=== PATIENT | female | born 1930 | race Native Hawaiian/Other Pacific Islander ===

== ENCOUNTER 2016-10-28 09:37 | Outpatient (CLI) | payer OTHER ==
[~2016-10-28 09:37] MED LIST: BALSALAZIDE750 MG PO; CEPH500C20 PO; DELZICOL400 MG PO; DICY20TA34 PO; DOCU100C10 PO; MAGNSUS68 PO; QUESTRAN4 G1 OR; TRAMADOL HCL XX; ULTRAM ER100 MG PO; VERIPRED 220 MG/5 ML PO; VITAMIN B-125000 MCG SL; WELCHOL625 MG PO
== END 2016-10-28 19:15 | disposition home or self-care (01) ==
LOC: RAD 09:37
DX: M85.89 Other specified disorders of bone density and structure, multiple sites (principal)

== ENCOUNTER 2016-11-07 07:43 | Outpatient (CLI) | payer OTHER | END 2016-11-07 19:19 | disposition home or self-care (01) | LOC: LABW 07:43 | PROVIDERS: Internal Medicine | DX: I10 Essential (primary) hypertension (principal) | CPT/HCPCS: 36415; 80061 ==

== ENCOUNTER 2017-04-11 12:42 | Outpatient (CLI) | payer OTHER | END 2017-04-11 19:03 | disposition home or self-care (01) | LOC: LAB 12:42 | DX: N39.0 Urinary tract infection, site not specified (principal) | CPT/HCPCS: 87077; 87086; 87088; 87186 ==

== ENCOUNTER 2017-05-16 15:08 | Outpatient (CLI) | payer OTHER ==
[2017-05-16 15:47] LABS: PLATELET COUNT 184 K/uL (152-353)
== END 2017-05-16 19:14 | disposition home or self-care (01) ==
LOC: LAB 15:08
PROVIDERS: Internal Medicine
DX: I10 Essential (primary) hypertension (principal); D64.89 Other specified anemias; R82.99 Other abnormal findings in urine
CPT/HCPCS: 80053; 80061; 81000; 84439; 84443; 85027; 87086; 87088

== ENCOUNTER 2017-10-24 10:30 | Outpatient (CLI) | payer OTHER ==
[~2017-10-24 10:30] MED LIST changes: +FIBER LAXATIV0.52 GM PO; +LIALDA1.2 GM PO
== END 2017-10-24 18:18 | disposition home or self-care (01) ==
LOC: NM 10:30
DX: K80.20 Calculus of gallbladder without cholecystitis without obstruction (principal)
CPT/HCPCS: A9537

== ENCOUNTER 2017-11-28 06:55 | Emergency (ER) | payer OTHER ==
[~2017-11-28] VITALS: Ht 160 cm; Wt 59.9 kg
[2017-11-28 07:03] VITALS: TEMP 97.9
[2017-11-28 07:35] LABS: POTASSIUM 4.3 mmol/L (3.6-5.2)
[2017-11-28 07:48] LABS: PLATELET COUNT 185 K/uL (152-353)
[2017-11-28 08:30] VITALS: BP 143/62
== END 2017-11-28 08:35 | disposition home or self-care (01) ==
LOC: ED 06:55
DX: K81.1 Chronic cholecystitis (principal)
CPT/HCPCS: 36415; 80053; 85027; 96374; 96375; 99284; J2175; J2405

== ENCOUNTER 2018-01-29 08:14 | Outpatient (CLI) | payer OTHER ==
[2018-01-29 08:58] LABS: PLATELET COUNT 221 K/uL (152-353)
[2018-01-29 09:45] LABS: POTASSIUM 3.8 mmol/L (3.6-5.2)
== END 2018-01-29 19:47 | disposition home or self-care (01) ==
LOC: LABW 08:14
PROVIDERS: Internal Medicine
DX: I25.10 Atherosclerotic heart disease of native coronary artery without angina pectoris (principal); E55.9 Vitamin D deficiency, unspecified; I10 Essential (primary) hypertension; Z79.899 Other long term (current) drug therapy; Z51.81 Encounter for therapeutic drug level monitoring
CPT/HCPCS: 36415; 80053; 80061; 81000; 82306; 82607; 84439; 84443; 85027

== ENCOUNTER 2018-06-24 08:06 | Inpatient (IN) | payer OTHER ==
[2018-06-24] VITALS (19 sets, daily range): BP systolic 123–170; BP diastolic 58–80; TEMP 97.7–98.3; Ht 160 cm; Wt 54.7 kg
[~2018-06-24] VITALS: Ht 160 cm; Wt 54.7 kg
[2018-06-24] MEDS ORDERED: VITAMIN D32000 UNI3 PO (08:26)
[2018-06-24] MEDS ORDERED: METHYL B-121000 MCG PO (08:27)
[2018-06-24] MEDS ORDERED: MULTIVITAMI2 PO (08:29)
[2018-06-24 08:42] LABS: PLATELET COUNT 182 K/uL (152-353)
[2018-06-24 08:52] LABS: POTASSIUM 3.7 mmol/L (3.6-5.2)
[2018-06-24 09:55] LABS: PARTIAL THROMBOPLASTIN TIME 25.1 SECONDS (24.5-33.6)
[2018-06-25] VITALS (21 sets, daily range): BP systolic 98–151; BP diastolic 52–83; TEMP 98.1–98.7
[2018-06-25 06:34] LABS: PLATELET COUNT 173 K/uL (152-353)
[2018-06-25 06:42] LABS: POTASSIUM 3.9 mmol/L (3.6-5.2); SODIUM 139 mmol/L (136-145)
[2018-06-26] VITALS (24 sets, daily range): BP systolic 88–137; BP diastolic 50–76; TEMP 97.8–98.3
[2018-06-26 05:57] LABS: PLATELET COUNT 176 K/uL (152-353)
[2018-06-26 06:19] LABS: POTASSIUM 3.9 mmol/L (3.6-5.2)
[2018-06-27] VITALS (13 sets, daily range): BP systolic 100–133; BP diastolic 48–70; TEMP 97.7–98.1
[2018-06-27 06:17] LABS: PLATELET COUNT 172 K/uL (152-353)
[2018-06-27 06:35] LABS: POTASSIUM 3.9 mmol/L (3.6-5.2)
[2018-06-28 04:00] VITALS: BP 92/51; TEMP 98.3
[2018-06-28 08:00] VITALS: BP 109/49; TEMP 97.5
[2018-06-28 08:00] LABS: PLATELET COUNT 175 K/uL (152-353)
[2018-06-28 08:20] LABS: POTASSIUM 3.8 mmol/L (3.6-5.2)
== END 2018-06-28 10:45 | disposition home or self-care (01) | DRG 65 ==
LOC: ED 08:06 → ICU 09:50 → MED/SURG 06-27 11:38
PROVIDERS: Family Medicine; Internal Medicine; ADMIT Internal Medicine
DX: I63.411 Cerebral infarction due to embolism of right middle cerebral artery (principal); N39.0 Urinary tract infection, site not specified; I69.391 Dysphagia following cerebral infarction; R13.12 Dysphagia, oropharyngeal phase; I25.10 Atherosclerotic heart disease of native coronary artery without angina pectoris; I12.9 Hypertensive chronic kidney disease with stage 1 through stage 4 chronic kidney disease, or unspecified chronic kidney disease; N18.3 Chronic kidney disease, stage 3 (moderate); B96.20 Unspecified Escherichia coli [E. coli] as the cause of diseases classified elsewhere; F03.90 Unspecified dementia, unspecified severity, without behavioral disturbance, psychotic disturbance, mood disturbance, and anxiety
CPT/HCPCS: 36415; 80053; 81000; 82550; 83735; 84439; 84443; 84484; 85027; 85379; 85610; 85730; 87077; 87086; 87088; 87186; 93005; 93306; 99285; J1650

== ENCOUNTER 2018-07-05 08:58 | Emergency (ER) | payer OTHER ==
[~2018-07-05] VITALS: Ht 160 cm; Wt 54.4 kg
[~2018-07-05 08:58] MED LIST changes: +METHYL B-121000 MCG PO; +MULTIVITAMI2 PO; +VITAMIN D32000 UNI3 PO
[2018-07-05 09:50] LABS: PLATELET COUNT 194 K/uL (152-353)
[2018-07-05 09:56] LABS: SODIUM 139 mmol/L (136-145)
[2018-07-05 10:13] LABS: PARTIAL THROMBOPLASTIN TIME 26.1 SECONDS (24.5-33.6)
[2018-07-05 12:23] VITALS: BP 117/54; TEMP 98
== END 2018-07-05 12:23 | disposition home or self-care (01) ==
LOC: ED 08:58
DX: G45.8 Other transient cerebral ischemic attacks and related syndromes (principal); J44.9 Chronic obstructive pulmonary disease, unspecified; Z79.899 Other long term (current) drug therapy; Z51.81 Encounter for therapeutic drug level monitoring
CPT/HCPCS: 80053; 81000; 82550; 84484; 85027; 85610; 85730; 93005; 99283

== ENCOUNTER 2018-11-29 08:06 | Outpatient (CLI) | payer OTHER ==
[2018-11-29 09:10] LABS: PLATELET COUNT 182 K/uL (152-353)
[2018-11-29 09:32] LABS: POTASSIUM 3.8 mmol/L (3.6-5.2)
== END 2018-11-29 21:39 | disposition home or self-care (01) ==
LOC: LABW 08:06
PROVIDERS: Internal Medicine
DX: I25.10 Atherosclerotic heart disease of native coronary artery without angina pectoris (principal); K59.00 Constipation, unspecified; I48.0 Paroxysmal atrial fibrillation; Z79.899 Other long term (current) drug therapy
CPT/HCPCS: 36415; 80053; 81000; 84439; 84443; 85027

== ENCOUNTER 2018-12-25 08:02 | Outpatient (CLI) | payer OTHER ==
[2018-12-25 08:20] LABS: PLATELET COUNT 192 K/uL (152-353)
[2018-12-25 08:44] LABS: POTASSIUM 4.2 mmol/L (3.6-5.2)
== END 2018-12-25 19:29 | disposition home or self-care (01) ==
LOC: LABW 08:02
PROVIDERS: Internal Medicine
DX: R53.1 Weakness (principal)
CPT/HCPCS: 36415; 80053; 81000; 84443; 85027

== ENCOUNTER 2019-03-16 14:42 | Emergency (ER) | payer OTHER ==
[~2019-03-16] VITALS: Ht 160 cm; Wt 54.4 kg
[2019-03-16 16:59] VITALS: BP 135/88; TEMP 97.9
== END 2019-03-16 17:00 | disposition home or self-care (01) ==
LOC: ED 14:42
DX: S09.8XXA Other specified injuries of head, initial encounter (principal); S50.312A Abrasion of left elbow, initial encounter; W01.198A Fall on same level from slipping, tripping and stumbling with subsequent striking against other object, initial encounter; Y92.091 Bathroom in other non-institutional residence as the place of occurrence of the external cause
CPT/HCPCS: 90471; 90715; 99282; 99283

== ENCOUNTER 2019-03-18 07:57 | Outpatient (CLI) | payer OTHER ==
[2019-03-18 08:26] LABS: PLATELET COUNT 150 K/uL (152-353)
[2019-03-18 08:42] LABS: POTASSIUM 3.8 mmol/L (3.6-5.2)
== END 2019-03-19 05:45 | disposition home or self-care (01) ==
LOC: LABW 07:57
PROVIDERS: Internal Medicine
DX: R63.0 Anorexia (principal); Z79.899 Other long term (current) drug therapy
CPT/HCPCS: 36415; 80053; 81000; 84439; 84443; 85027

== ENCOUNTER 2019-03-19 08:28 | Outpatient (CLI) | payer OTHER | END 2019-03-19 23:40 | disposition home or self-care (01) | LOC: LABW 08:28 | DX: D64.89 Other specified anemias (principal); E53.8 Deficiency of other specified B group vitamins; D64.9 Anemia, unspecified | CPT/HCPCS: 36415; 82607; 82728; 82747; 83540 ==

== ENCOUNTER 2019-04-27 05:45 | Outpatient (CLI) | payer OTHER ==
[2019-04-27] MEDS ORDERED: ELIQUIS STARTER5 MG PO (06:28)
[2019-04-27] MEDS ORDERED: CYPROHEPTADINE H4 MG PO (06:29)
[2019-04-27] MEDS ORDERED: LIALDA1.2 GM PO (19:10)
== END 2019-04-27 05:58 | disposition short-term general hospital (02) ==
LOC: AMB 05:45
DX: R55 Syncope and collapse (principal); R53.1 Weakness
CPT/HCPCS: A0425; A0427

== ENCOUNTER 2019-04-27 05:56 | Observation (INO) | payer OTHER ==
[~2019-04-27] VITALS: Ht 157.5 cm; Wt 50.0 kg
[2019-04-27] VITALS (15 sets, daily range): BP systolic 97–126; BP diastolic 49–73; TEMP 97.2–99; Ht 157.5 cm; Wt 50.0 kg
[2019-04-27] MEDS ORDERED: ELIQUIS STARTER5 MG PO (06:28)
[2019-04-27] MEDS ORDERED: CYPROHEPTADINE H4 MG PO (06:29)
[2019-04-27 06:41] LABS: PLATELET COUNT 198 K/uL (152-353)
[2019-04-27 06:49] LABS: POTASSIUM 3.9 mmol/L (3.6-5.2); SODIUM 138 mmol/L (136-145)
[2019-04-27] MEDS ORDERED: LIALDA1.2 GM PO (19:10)
[2019-04-28 04:00] VITALS: BP 107/65; TEMP 98.3
[2019-04-28 05:36] LABS: PLATELET COUNT 143 K/uL (152-353)
[2019-04-28 05:50] LABS: POTASSIUM 3.4 mmol/L (3.6-5.2)
[2019-04-28 08:00] VITALS: BP 138/74; TEMP 97.9
[2019-04-28 12:00] VITALS: BP 129/57; TEMP 97.9
[2019-04-28 14:44] LABS: PARTIAL THROMBOPLASTIN TIME 39.3 SECONDS (24.5-33.6)
[2019-04-28 16:00] VITALS: BP 140/117; TEMP 97.4
[2019-04-28 20:00] VITALS: BP 144/69; TEMP 98.6
[2019-04-29] VITALS: BP 135/63; TEMP 98.4
[2019-04-29 04:00] VITALS: BP 132/50; TEMP 98.8
[2019-04-29 05:05] LABS: PLATELET COUNT 157 K/uL (152-353)
[2019-04-29 05:18] LABS: POTASSIUM 3.5 mmol/L (3.6-5.2)
[2019-04-29 08:00] VITALS: BP 102/58; TEMP 98.6
== END 2019-04-29 10:30 | disposition home or self-care (01) ==
LOC: ED 05:56 → MED/SURG 09:07
PROVIDERS: Family Medicine; Internal Medicine; ADMIT Emergency Medicine
DX: D50.8 Other iron deficiency anemias (principal); F03.90 Unspecified dementia, unspecified severity, without behavioral disturbance, psychotic disturbance, mood disturbance, and anxiety; I69.354 Hemiplegia and hemiparesis following cerebral infarction affecting left non-dominant side; I48.0 Paroxysmal atrial fibrillation; Z79.01 Long term (current) use of anticoagulants; E46 Unspecified protein-calorie malnutrition; E86.0 Dehydration; K51.80 Other ulcerative colitis without complications; E87.6 Hypokalemia; R53.1 Weakness; I95.89 Other hypotension; R55 Syncope and collapse
CPT/HCPCS: 36415; 80053; 81000; 82550; 82607; 84134; 84207; 84484; 85027; 85610; 85730; 93005; 96360; 99220; 99284; G0378; J3490

== ENCOUNTER 2019-05-01 12:26 | Outpatient (CLI) | payer OTHER ==
[~2019-05-01 12:26] MED LIST changes: +CYPROHEPTADINE H4 MG PO; +ELIQUIS STARTER5 MG PO
== END 2019-05-01 20:14 | disposition home or self-care (01) ==
LOC: LAB 12:26
DX: R19.7 Diarrhea, unspecified (principal)
CPT/HCPCS: 82272; 83630; 87324; 87328; 87329; 87449; 87507

== ENCOUNTER 2019-05-06 07:57 | Outpatient (CLI) | payer OTHER ==
[2019-05-06 08:37] LABS: PLATELET COUNT 275 K/uL (152-353)
[2019-05-06 09:06] LABS: POTASSIUM 3.3 mmol/L (3.6-5.2)
== END 2019-05-06 20:21 | disposition home or self-care (01) ==
LOC: LABW 07:57
PROVIDERS: Internal Medicine Medical Oncology
DX: D64.89 Other specified anemias (principal); I48.0 Paroxysmal atrial fibrillation
CPT/HCPCS: 36415; 80053; 82525; 82607; 82728; 82746; 83010; 83540; 83550; 83615; 83883; 84165; 85027; 85044; 86880

== ENCOUNTER 2019-10-31 11:00 | Outpatient (CLI) | payer OTHER ==
[2019-10-31 11:34] LABS: PLATELET COUNT 195 K/uL (152-353)
[2019-10-31 11:44] LABS: POTASSIUM 4.1 mmol/L (3.6-5.2)
== END 2019-10-31 22:45 | disposition home or self-care (01) ==
LOC: LABW 11:00
PROVIDERS: Family Medicine
DX: M54.5 Low back pain (principal); N39.0 Urinary tract infection, site not specified; R31.9 Hematuria, unspecified; R53.83 Other fatigue; E78.49 Other hyperlipidemia
CPT/HCPCS: 36415; 80053; 80061; 82043; 82570; 84100; 85027; 87086; 87088; Q9963

== ENCOUNTER 2019-11-04 09:41 | Outpatient (CLI) | payer OTHER | END 2019-11-04 23:05 | disposition home or self-care (01) | LOC: MRI 09:41 | DX: R93.7 Abnormal findings on diagnostic imaging of other parts of musculoskeletal system (principal) ==

== ENCOUNTER 2019-12-16 10:25 | Outpatient (CLI) | payer OTHER ==
[2019-12-16 11:23] LABS: PLATELET COUNT 198 K/uL (152-353)
[2019-12-16 11:47] LABS: POTASSIUM 3.4 mmol/L (3.6-5.2)
== END 2019-12-16 19:38 | disposition home or self-care (01) ==
LOC: LAB 10:25
PROVIDERS: Internal Medicine Medical Oncology
DX: D46.Z Other myelodysplastic syndromes (principal)
CPT/HCPCS: 80053; 82607; 82728; 82746; 83540; 83550; 85027

== ENCOUNTER 2020-03-23 11:25 | Outpatient (CLI) | payer OTHER ==
[2020-03-23 11:50] LABS: PLATELET COUNT 189 K/uL (152-353)
[2020-03-23 12:42] LABS: POTASSIUM 3.9 mmol/L (3.6-5.2)
== END 2020-03-23 22:38 | disposition home or self-care (01) ==
LOC: LAB 11:25
PROVIDERS: Internal Medicine Medical Oncology
DX: D46.Z Other myelodysplastic syndromes (principal)
CPT/HCPCS: 80053; 82607; 82728; 83540; 83550; 85027

== ENCOUNTER 2020-06-15 12:22 | Outpatient (CLI) | payer OTHER ==
[2020-06-15 12:53] LABS: PLATELET COUNT 199 K/uL (152-353)
== END 2020-06-15 20:32 | disposition home or self-care (01) ==
LOC: LAB 12:22
PROVIDERS: Nurse Practitioner Adult Health
DX: D46.Z Other myelodysplastic syndromes (principal)
CPT/HCPCS: 85027

== ENCOUNTER 2020-08-18 11:26 | Outpatient (CLI) | payer OTHER ==
[2020-08-18 11:51] LABS: PLATELET COUNT 193 K/uL (152-353)
[2020-08-18 12:11] LABS: POTASSIUM 3.8 mmol/L (3.6-5.2)
== END 2020-08-18 22:57 | disposition home or self-care (01) ==
LOC: LAB 11:26
PROVIDERS: ATTEND Nurse Practitioner Adult Health
DX: D46.Z Other myelodysplastic syndromes (principal)
CPT/HCPCS: 80053; 82607; 82728; 83540; 83550; 85027

== ENCOUNTER 2020-11-04 08:01 | Observation (INO) | payer OTHER ==
[2020-11-04] VITALS (9 sets, daily range): BP systolic 111–143; BP diastolic 50–62; TEMP 98–99.2; Ht 160 cm; Wt 64.6 kg
[~2020-11-04] VITALS: Ht 160 cm; Wt 64.6 kg
[2020-11-04 08:50] LABS: POTASSIUM 4.2 mmol/L (3.6-5.2)
[2020-11-04 08:56] LABS: PLATELET COUNT 300 K/uL (152-353)
[2020-11-04] MEDS ORDERED: ELIQUIS5 MG PO (11:52)
[2020-11-04] MEDS ORDERED: PREDNISONE5 MG PO (11:58)
[2020-11-04] MEDS ORDERED: MESALAMINE DR1.2 GM PO (11:59)
[2020-11-04] MEDS ORDERED: VITAMIN D32000 UNI1 PO (12:07)
[2020-11-04] MEDS ORDERED: VITAMIN B-121000 MC2 PO (12:12)
--- NOTE | 2020-11-04 19:52 | NUR ---
1ST UNIT OF PRBC'S COMPLETED INFUSING AT THIS TIME WITH 383ML OF PRBC'S INFUSED AT THIS TIME.
--- NOTE | 2020-11-04 19:53 | NUR ---
PT'S 1ST UNIT OF BLOOD TRANSFUSION COMPLETED AT THIS TIME.
--- NOTE | 2020-11-04 20:15 | NUR ---
PT. RESPONSIVE TO VERBAL AND SENSORY STIMULI. PT. ALERT IN A HIGH FOWLERS POSITION WITH BED IN THE LOWEST POSITION.
--- NOTE | 2020-11-04 20:30 | NUR ---
PT WAS ASSISTED PT AMBULATED TO THE BATHROOM TO URINATE WITH THE HELP OF A ROLLING WALKER. PT AMBULATED BACK TO BED WITH THE ROLLING WALKER. PT WAS PUT BACK INTO BED A TWO PERSON ASSIST IN A HIGH FOWLERS POSITION. PT'S DAUGHTER REQUESTED A BED SIDE COMMODE FOR THE PT AFTER INTERVENTION WAS COMPLETED.
--- NOTE | 2020-11-04 20:52 | NUR ---
POST-OP TRANSFUSION VITAL SIGNS ARE BLOOD PRESSURE 114/55, PULSE 76, RESP 19, T99.1 ORAL, SPO2 97%. PATIENT DENIES ANY PAIN, NEEDS OR C/O AT THIS TIME.
--- NOTE | 2020-11-04 23:15 | NUR ---
ARIA MONROY PLACED ON PT AT THIS TIME BILATERALLY.
[2020-11-05] VITALS (7 sets, daily range): BP systolic 104–129; BP diastolic 31–58; TEMP 98.1–98.8
--- NOTE | 2020-11-05 01:45 | NUR ---
ASSISTED PATIENT TO BEDSIDE COMMODE WHERE SHE HAD A BOWEL MOVEMENT AND URINATED. PRIOR TO [employer]IST ENTERING ROOM, PATIENT HAD AN INCONTINENT BOWEL. PATIENT CLEANED AND MEGAN CARE PERFORMED. ASSISTED PATIENT BACK TO BEDSIDE WITHOUT DIFFICULTY. DAUGHTER REMAINS AT BEDSIDE.
--- NOTE | 2020-11-05 03:00 | NUR ---
PT VITALS WERE THE FOLLOWING AT THIS TIME DURING BLOOD TRANSFUSION: TEMP: 98.6, BP:117/55 AND P- 62. PT. SEEMED TO BE IN NO DISTRESS AT THIS TIME AND RESPONDED APPROPRIATELY TO VERBAL AND TACTILE STIMULI.
--- NOTE | 2020-11-05 03:41 | NUR ---
PT'S SECOND UNIT OF PACKED RED BLOOD CELLS COMPLETED AT THIS TIME. PT TOLERATED TRANSFUSION WELL. FLUSHED IV SITE WITH 10 ML OF NS WITH NO DIFFICULTY.
--- NOTE | 2020-11-05 07:40 | NUR ---
ROUNDED ON PATIENT THIS MORNING. PATIENT IS NOTED RESTING QUIETLY IN THE BED WITH EYES OPEN. FAMILY IS AT THE BEDSIDE. SHIFT ASSESSMENT COMPLETED. PATIENT HAS NO COMPLAINS AND IS IN NO ACUTE DISTRESS. IV 20G TO THE RAC IS PATENT AND INTACT WITH NO VISIBLE SIGNS OF INFILTRATION OR PHLEBITIS NOTED. PATIENT REPORTS NO PAIN. BED IS LOCKED IN LOW POSITION, SIDE RAILS UP X2, CALL LIGHT WITHIN REACH.
[2020-11-05 09:51] LABS: PLATELET COUNT 261 K/uL (152-353)
[2020-11-05] MEDS ORDERED: PANTOPRAZOLE 40MG TA PO (12:35)
[2020-11-05] MEDS ORDERED: DOCU100C10 PO (12:52)
[2020-11-05] MEDS ORDERED: IRON325 MG PO (12:52)
== END 2020-11-05 14:50 | disposition home health service (06) ==
LOC: ED 08:01 → MED/SURG 10:47
PROVIDERS: Emergency Medicine Emergency Medical Services; ADMIT Internal Medicine; ATTEND Internal Medicine
PROC: 30233N1 Transfusion of Nonautologous Red Blood Cells into Peripheral Vein, Percutaneous Approach (ICD-10-PCS; principal; 2020-11-04)
PROC: 30233N1 Transfusion of Nonautologous Red Blood Cells into Peripheral Vein, Percutaneous Approach (ICD-10-PCS; 2020-11-05)
DX: D50.8 Other iron deficiency anemias (principal); S20.02XA Contusion of left breast, initial encounter; S40.022A Contusion of left upper arm, initial encounter; W18.39XA Other fall on same level, initial encounter; Z91.81 History of falling; Y92.89 Other specified places as the place of occurrence of the external cause; Z79.01 Long term (current) use of anticoagulants; Z86.73 Personal history of transient ischemic attack (TIA), and cerebral infarction without residual deficits; I10 Essential (primary) hypertension
CPT/HCPCS: 36415; 36430; 80053; 81000; 82272; 82607; 82728; 82746; 83540; 83550; 84439; 84443; 84481; 85027; 86850; 86900; 86901; 86922; 87635; 96360; 96365; 99220; 99284; G0378; P9016; U0003

== ENCOUNTER 2020-11-23 13:46 | Outpatient (CLI) | payer OTHER ==
[~2020-11-23 13:46] MED LIST changes: +ELIQUIS5 MG PO; +IRON325 MG PO; +MESALAMINE DR1.2 GM PO; +PANTOPRAZOLE 40MG TA PO; +PREDNISONE5 MG PO; +VITAMIN B-121000 MC2 PO; +VITAMIN D32000 UNI1 PO
[2020-11-23 14:15] LABS: PLATELET COUNT 261 K/uL (152-353)
== END 2020-11-23 19:26 | disposition home or self-care (01) ==
LOC: LAB 13:46
PROVIDERS: ATTEND Internal Medicine Hematology & Oncology
DX: D64.89 Other specified anemias (principal); I12.9 Hypertensive chronic kidney disease with stage 1 through stage 4 chronic kidney disease, or unspecified chronic kidney disease; N18.9 Chronic kidney disease, unspecified; E53.8 Deficiency of other specified B group vitamins; E55.9 Vitamin D deficiency, unspecified; Z79.899 Other long term (current) drug therapy
CPT/HCPCS: 80053; 80061; 82306; 82607; 82728; 83036; 83540; 83550; 84439; 84443; 85027

== ENCOUNTER 2020-11-30 13:08 | Inpatient (IN) | payer OTHER ==
[~2020-11-30] VITALS: Ht 160 cm; Wt 63.7 kg
[2020-11-30] VITALS (10 sets, daily range): BP systolic 102–149; BP diastolic 59–94; TEMP 98.1–98.4; Ht 160 cm; Wt 63.7 kg
[2020-11-30 14:26] LABS: PLATELET COUNT 231 K/uL (152-353)
[2020-11-30 14:36] LABS: POTASSIUM 3.8 mmol/L (3.6-5.2); SODIUM 141 mmol/L (136-145)
--- NOTE | 2020-11-30 18:20 | NUR ---
REC'D PT FROM ER VIA STETCHER TO ROOM 1112 ACCOMPANIED BY GRANT WOODS RN. NO DISTRESS NOTED. PT ASSISTED FROM STRETCHER TO BED. PT FAMILY MEMBER AT BEDSIDE.
--- NOTE | 2020-11-30 19:45 | NUR ---
ENTERED PATIENT'S ROOM. PATIENT RESTING QUIETLY IN BED WITH EYES CLOSED. PATIENT ALERT TO VERBALIZATION. DAUGHTER PRESENT AND STAYING WITH PATIENT. BRIEF CHANGED. DARK, LOOSE STOOL NOTED. HER DAUGHTER STATES THAT THIS ALSO OCCURRED AT HOME WELL. 22G TO RIGHT FOREARM FLUSHED WITH NS. NS INFUSING @ 50ML/HR. NO OTHER CONCERNS OR COMPLAINTS VOICED AT THIS TIME. BED LOCKED AND IN LOWEST POSITION. CALL LIGHT WITHIN EASY REACH. 2030-PM MEDICATIONS BROUGHT TO PATIENT'S ROOM. PATIENT'S DAUGHTER DID NOT WANT THE PATIENT TO RECEIVE ANY IRON SUPPLEMENT AT THIS TIME SECONDARY TO DARK STOOLS. LOVENOX GIVEN. PATIENT RESTING QUIETLY WITH EYES CLOSED. NAD NOTED.
[2020-12-01 00:11] VITALS: BP 150/71; TEMP 98.04
--- NOTE | 2020-12-01 02:00 | NUR ---
PATIENT RESTING QUIETLY IN BED WITH EYES CLOSED. RESPIRATIONS EVEN AND UNLABORED. NAD NOTED. NS INFUSING @ 50ML/HR. DAUGHTER SLEEPING AT BEDSIDE. CALL LIGHT WITHIN REACH OF PATIENT.
[2020-12-01 04:00] VITALS: BP 142/69; TEMP 98.2
[2020-12-01 05:51] LABS: PLATELET COUNT 226 K/uL (152-353)
[2020-12-01 06:08] LABS: POTASSIUM 3.7 mmol/L (3.6-5.2)
[2020-12-01 08:00] VITALS: BP 137/64; TEMP 97.7
[2020-12-01 12:00] VITALS: BP 130/60; TEMP 97.7
[2020-12-01 16:00] VITALS: BP 122/74; TEMP 98.2
[2020-12-01 20:00] VITALS: BP 144/66; TEMP 98.3
[2020-12-02 00:14] VITALS: BP 147/73; TEMP 98.2
[2020-12-02 04:00] VITALS: BP 140/63; TEMP 98.3
[2020-12-02 06:02] LABS: PLATELET COUNT 200 K/uL (152-353)
[2020-12-02 06:09] LABS: POTASSIUM 3.5 mmol/L (3.6-5.2)
[2020-12-02 08:00] VITALS: BP 125/74; TEMP 98.4
[2020-12-02 12:00] VITALS: BP 116/54; TEMP 98.5
--- NOTE | 2020-12-02 13:04 | NUR ---
DC INSTRUCTIONS EXPLAINED TO PT'S DAUGHTER WHO VERBALIZED UNDERSTANDING. PT LEFT FLOOR IN NAD VIA WC FOR TRANSPORT HOME WITH FAMILY .
== END 2020-12-02 15:05 | disposition home or self-care (01) | DRG 641 ==
LOC: ED 13:10 → MED/SURG 16:00
PROVIDERS: Emergency Medicine Emergency Medical Services; ADMIT Internal Medicine Endocrinology, Diabetes & Metabolism; ATTEND Internal Medicine Endocrinology, Diabetes & Metabolism
DX: E86.0 Dehydration (principal); F03.90 Unspecified dementia, unspecified severity, without behavioral disturbance, psychotic disturbance, mood disturbance, and anxiety; D50.9 Iron deficiency anemia, unspecified; E55.9 Vitamin D deficiency, unspecified; K21.9 Gastro-esophageal reflux disease without esophagitis; Z86.73 Personal history of transient ischemic attack (TIA), and cerebral infarction without residual deficits; I25.10 Atherosclerotic heart disease of native coronary artery without angina pectoris; I12.9 Hypertensive chronic kidney disease with stage 1 through stage 4 chronic kidney disease, or unspecified chronic kidney disease; N18.30 Chronic kidney disease, stage 3 unspecified
CPT/HCPCS: 36415; 80048; 80053; 80061; 83735; 84484; 85027; 87635; 93005; 94760; 96360; 96374; 99284; J1650; U0003

== ENCOUNTER 2021-07-21 13:13 | Outpatient (CLI) | payer OTHER | END 2021-07-21 20:29 | disposition home or self-care (01) | LOC: LAB 13:13 | PROVIDERS: ATTEND Internal Medicine | DX: T81.89XA Other complications of procedures, not elsewhere classified, initial encounter (principal) | CPT/HCPCS: 87070; 87077; 87186; 87205 ==

== ENCOUNTER 2021-09-07 09:54 | Inpatient (IN) | payer OTHER ==
[2021-09-07] VITALS (21 sets, daily range): BP systolic 79–131; BP diastolic 9–87; TEMP 97; Ht 160 cm; Wt 54.2 kg
[~2021-09-07] VITALS: Ht 160 cm; Wt 54.2 kg
[2021-09-07 12:57] LABS: PARTIAL THROMBOPLASTIN TIME 25.9 SECONDS (24.5-33.6)
[2021-09-07 12:58] LABS: PLATELET COUNT 227 K/uL (152-353)
[2021-09-07 13:12] LABS: POTASSIUM 3.4 mmol/L (3.6-5.2); SODIUM 144 mmol/L (136-145)
[2021-09-08] VITALS (78 sets, daily range): BP systolic 100–145; BP diastolic 8–80; TEMP 96.4–99.3
[2021-09-08 05:56] LABS: PLATELET COUNT 166 K/uL (152-353)
[2021-09-08 06:19] LABS: POTASSIUM 4.2 mmol/L (3.6-5.2)
[2021-09-08] MEDS ORDERED: MEGESTROL AC40 MG/ML PO (07:43)
[2021-09-08] MEDS ORDERED: TERB250T PO (07:45)
[2021-09-08] MEDS ORDERED: DIPHENOXYLATE H1 TAB PO (07:46)
[2021-09-08] MEDS ORDERED: MESA4ENE RE (07:52)
[2021-09-08] MEDS ORDERED: HYDROCODONE BIT1 TA1 PO (07:53)
[2021-09-09] VITALS (39 sets, daily range): BP systolic 99–138; BP diastolic 52–89; TEMP 98.1–99
[2021-09-09 04:42] LABS: POTASSIUM 3.6 mmol/L (3.6-5.2)
[2021-09-09 04:56] LABS: PLATELET COUNT 138 K/uL (152-353)
[2021-09-10] VITALS (9 sets, daily range): BP systolic 84–142; BP diastolic 53–79; TEMP 97.6–98.9
[2021-09-10 04:30] LABS: PLATELET COUNT 126 K/uL (152-353)
[2021-09-10 04:39] LABS: POTASSIUM 3.7 mmol/L (3.6-5.2)
[2021-09-11 00:10] VITALS: BP 103/55; TEMP 99.6
[2021-09-11 04:00] VITALS: BP 133/69; TEMP 99.2
[2021-09-11 05:00] LABS: PLATELET COUNT 136 K/uL (152-353)
[2021-09-11 05:04] LABS: POTASSIUM 3.4 mmol/L (3.6-5.2)
[2021-09-11 08:00] VITALS: BP 136/64; TEMP 97.7
[2021-09-11 12:00] VITALS: BP 139/64; TEMP 97.3
[2021-09-11 16:00] VITALS: BP 108/63; TEMP 98.2
[2021-09-11 20:00] VITALS: BP 122/59; TEMP 98.9
[2021-09-12] VITALS: BP 131/74; TEMP 98.6
[2021-09-12 03:59] VITALS: BP 152/74; TEMP 98.9
[2021-09-12 05:13] LABS: PLATELET COUNT 145 K/uL (152-353)
[2021-09-12 05:30] LABS: POTASSIUM 3.6 mmol/L (3.6-5.2)
[2021-09-12 08:00] VITALS: BP 152/74; TEMP 97.6
[2021-09-12 12:00] VITALS: BP 95/42; TEMP 97.2
[2021-09-12 16:29] VITALS: BP 126/73; TEMP 98.5
[2021-09-12 20:00] VITALS: BP 120/58; TEMP 97.7
[2021-09-13] VITALS: BP 117/55; TEMP 99.2
[2021-09-13 04:00] VITALS: BP 132/60; TEMP 98.3
[2021-09-13 08:00] VITALS: BP 132/62; TEMP 99.5
[2021-09-13 12:00] VITALS: BP 125/64; TEMP 99.4
[2021-09-13 16:00] VITALS: BP 134/70; TEMP 99.3
[2021-09-13 20:00] VITALS: BP 120/56; TEMP 99.3
[2021-09-14 00:10] VITALS: BP 119/64; TEMP 98.8
[2021-09-14 04:00] VITALS: BP 110/53; TEMP 99.3
[2021-09-14 05:49] LABS: POTASSIUM 2.6 mmol/L (3.6-5.2)
[2021-09-14 06:02] LABS: PLATELET COUNT 168 K/uL (152-353)
[2021-09-14 08:00] VITALS: BP 130/52; TEMP 99.7
[2021-09-14 12:00] VITALS: BP 124/60; TEMP 97.8
[2021-09-14] MEDS ORDERED: ERTA1INJ2 IM (15:37)
[2021-09-14] MEDS ORDERED: FOLI1TAB26 PO (15:37)
[2021-09-14] MEDS ORDERED: K-TAB20 MEQ PO (15:41)
[2021-09-14] MEDS ORDERED: IRON325 MG PO (15:42)
[2021-09-14] MEDS ORDERED: DOCU100C10 PO (15:43)
[2021-09-14 16:00] VITALS: BP 124/58; TEMP 98.9
== END 2021-09-14 19:13 | disposition home health service (06) | DRG 193 ==
LOC: ED 09:54 → MED/SURG 14:30
PROVIDERS: Internal Medicine; Neurological Surgery; ADMIT Internal Medicine Endocrinology, Diabetes & Metabolism; ATTEND Internal Medicine Endocrinology, Diabetes & Metabolism
PROC: 30233N1 Transfusion of Nonautologous Red Blood Cells into Peripheral Vein, Percutaneous Approach (ICD-10-PCS; principal; 2021-09-09)
PROC: 05HM33Z Insertion of Infusion Device into Right Internal Jugular Vein, Percutaneous Approach (ICD-10-PCS; 2021-09-09)
PROC: B543ZZA Ultrasonography of Right Jugular Veins, Guidance (ICD-10-PCS; 2021-09-09)
DX: J18.8 Other pneumonia, unspecified organism (principal); L89.224 Pressure ulcer of left hip, stage 4; R65.21 Severe sepsis with septic shock; J96.01 Acute respiratory failure with hypoxia; N17.8 Other acute kidney failure; N30.00 Acute cystitis without hematuria; K50.90 Crohn's disease, unspecified, without complications; B96.20 Unspecified Escherichia coli [E. coli] as the cause of diseases classified elsewhere; D64.89 Other specified anemias; I69.391 Dysphagia following cerebral infarction; I87.8 Other specified disorders of veins; R13.11 Dysphagia, oral phase
CPT/HCPCS: 36415; 80048; 80053; 81000; 82272; 82607; 82728; 82746; 83540; 84484; 85027; 85610; 85730; 86850; 86900; 86901; 86922; 87040; 87070; 87077; 87086; 87088; 87186; 87205; 87502; 87635; 93005; 94640; 94664; 94760; 96360; 96361; 96365; 96366; 96375; 99284; J1956; C1768; J1265; J1335; J1644; J1720; J2185; J2270; J2405; J2543; J2916; J3490; P9016; P9047; U0003